=== PATIENT | female | born 1965 | race Hispanic/Latino ===

== ENCOUNTER 2021-05-27 14:00 | Inpatient (IN) | payer MEDICARE, OTHER ==
[~2021-05-27] VITALS: Ht 152.4 cm; Wt 76.2 kg
[2021-05-27 14:43] LABS: ABG BASE EXCESS -2.5 mmol/L (-2.0-3.0); ABG HCO3 21.6 mmol/L (21.0-28.0); ABG OXYGEN SATURATION 93.9 % (95.0-99.0); ABG PCO2 36 mmHg (32-45)
[2021-05-27 14:48] LABS: BASOPHILS % (AUTO) 0.1 % (0.0-5.0); HEMATOCRIT 41.6 % (36-48); LYMPHOCYTES % (AUTO) 12.2 % (21.0-51.0); MEAN CORPUSCULAR HGB CONC 31.5 g/dL (32.0-36.0); MEAN CORPUSCULAR VOLUME 82.7 fL (79-99); MONOCYTES % (AUTO) 5.2 % (3.0-13.0); NEUTROPHILS % (AUTO) 81.5 % (40.0-77.0); PLATELET COUNT (AUTO) 178 K/uL (130-400); RED BLOOD CELL COUNT(AUTO) 5.03 MIL/uL (4.00-5.50); RED CELL DISTRIBUTION WIDTH 14.4 % (11.0-15.5); WHITE BLOOD COUNT (AUTO) 8.3 K/uL (4.8-10.8)
[2021-05-27 15:02] LABS: CREATININE 0.9 mg/dL (0.5-1.5); POTASSIUM 3.9 mmol/L (3.5-5.1)
[2021-05-27 15:07] LABS: ALBUMIN 3.3 g/dL (3.5-5.0); BILIRUBIN,TOTAL 0.4 mg/dL (0.2-1.0); CRP QUANTITATIVE 95.1 mg/L (0.00-9.0); TOTAL PROTEIN, SERUM 8.3 g/dL (6.0-8.3)
[2021-05-27 15:33] LABS: B-TYPE NATRIURETIC PEPTIDE 45 pg/mL (0-100)
[2021-05-27] MEDS ORDERED: PHARMACY COMMUNICATION**REMDESIVIR ORDER MISC SCH (17:00)
[2021-05-27] MEDS ORDERED: LACTULOSE 20 GM/30 ML UDCUP PO PRN (17:00)
[2021-05-27] MEDS ORDERED: ONDANSETRON 4MG INJ IV PRN (17:00)
[2021-05-27] MEDS ORDERED: ERGOCALCIFEROL (VITAMIN D2) 50,000 UNIT CAPSULE PO ONE (17:00)
[2021-05-27] MEDS ORDERED: ACETAMINOPHEN 325 MG TAB PO PRN ×2 (17:00)
[2021-05-27 17:16] LABS: HEMOGLOBIN A1C 7.8 % (4.0-6.0)
[2021-05-27] MEDS ORDERED: COMPOUND IV REFRIGERATED 1 EACH IVSOLN MISC PRN (17:30)
[2021-05-27] MEDS: DOXYCYCLINE 100MG+NS 250ML IV SCH (17:42)
[2021-05-27] MEDS: CEFTRIAXONE 1G VIAL IVP SCH (17:42)
[2021-05-27] MEDS: DEXAMETHASONE SOD PHOSPHATE 4 MG/ML 1ML VIAL IVP SCH (17:42)
[2021-05-27] MEDS ORDERED: REMDESIVIR (EUA) 520 200 MG in 0.9% NACL 250ML 250 ML IV SCH (18:00)
[2021-05-27] MEDS: INSULIN HUMULIN R 100 UNIT/ML 3ML SQ SCH (20:56)
[2021-05-27] MEDS: ENOXAPARIN SODIUM 40 MG/0.4 ML SYRINGE SQ SCH (20:56)
[2021-05-27] MEDS: FAMOTIDINE 20MG TAB PO SCH (20:56)
[2021-05-27 21:02] LABS: APPEARANCE,URINE Clear (CLEAR); BILIRUBIN,URINE Negative (NEGATIVE); COLOR,URINE Yellow (YELLOW); GLUCOSE, URINE (UA) >=1000 mg/dL (NEGATIVE); KETONES,URINE Negative (NEGATIVE); LEUKOCYTE ESTERASE ,URINE Negative (NEGATIVE); NITRATE,URINE Negative (NEGATIVE); OCCULT BLOOD,URINE Negative (NEGATIVE); PROTEIN,URINE POS 1+ mg/dL (NEGATIVE); UROBILINOGEN,URINE 0.2 mg/dL (0.2-1.0)
[2021-05-27 21:11] LABS: BACTERIA,URINE None Seen /HPF (None Seen); RBC,URINE None Seen /HPF (0-1); SQUAMOUS EPITHELIAL CELL,UR Few /HPF (0-2); WBC,URINE None Seen /HPF (0-1); YEAST,URINE BUDDING None Seen /HPF (None Seen)
[2021-05-28] MEDS ORDERED: 0.9% NACL 250ML 250 ML ONE (05:03)
[2021-05-28] MEDS: DOXYCYCLINE 100MG+NS 250ML IV SCH ×2 (05:07→16:54)
[2021-05-28] MEDS: CEFTRIAXONE 1G VIAL IVP SCH ×2 (05:07→16:54)
[2021-05-28 05:30] VITALS: BP 142/88
[2021-05-28] MEDS: REMDESIVIR LABS MISC SCH (06:00)
[2021-05-28] MEDS: INSULIN HUMULIN R 100 UNIT/ML 3ML SQ SCH ×4 (06:48→22:18)
[2021-05-28] MEDS ORDERED: ISOS120T14 PO (07:02)
[2021-05-28] MEDS ORDERED: EZET10TA48 PO (07:02)
[2021-05-28] MEDS ORDERED: PRAV40TA3 PO (07:02)
[2021-05-28] MEDS ORDERED: MODA100T31 PO (07:02)
[2021-05-28] MEDS ORDERED: MONT10TA21 PO (07:02)
[2021-05-28] MEDS ORDERED: METF-444 PO (07:02)
[2021-05-28] MEDS ORDERED: ASPI-1197 PO (07:02)
[2021-05-28] MEDS ORDERED: CLOP75TA32 PO (07:02)
[2021-05-28] MEDS ORDERED: BUDE10.2 IH (07:02)
[2021-05-28] MEDS ORDERED: CELE-84 PO (07:02)
[2021-05-28] MEDS ORDERED: EMPA10TA PO (07:02)
[2021-05-28] MEDS ORDERED: GLIP5TAB11 PO (07:02)
[2021-05-28] MEDS ORDERED: CITA20TA17 PO (07:02)
[2021-05-28] MEDS ORDERED: METO-409 PO (07:02)
[2021-05-28] MEDS ORDERED: UMEC62.5 IH (07:02)
[2021-05-28] MEDS ORDERED: PREG75CA75 PO (07:02)
[2021-05-28] MEDS ORDERED: RANO10003 PO (07:02)
[2021-05-28] MEDS ORDERED: MELA3CAP2 PO (07:02)
[2021-05-28 07:21] LABS: BASOPHILS % (AUTO) 0.3 % (0.0-5.0); HEMATOCRIT 41.6 % (36-48); LYMPHOCYTES % (AUTO) 16.3 % (21.0-51.0); MEAN CORPUSCULAR HEMOGLOBIN 26.1 pg (27.0-33.0); MEAN CORPUSCULAR HGB CONC 30.8 g/dL (32.0-36.0); MEAN CORPUSCULAR VOLUME 84.9 fL (79-99); MONOCYTES % (AUTO) 7.1 % (3.0-13.0); NEUTROPHILS % (AUTO) 74.5 % (40.0-77.0); PLATELET COUNT (AUTO) 196 K/uL (130-400); RED CELL DISTRIBUTION WIDTH 14.3 % (11.0-15.5); WHITE BLOOD COUNT (AUTO) 6.8 K/uL (4.8-10.8)
[2021-05-28 08:37] VITALS: BP 130/84
[2021-05-28 09:18] LABS: BILIRUBIN,TOTAL 0.3 mg/dL (0.2-1.0); CREATININE 0.7 mg/dL (0.5-1.5); CRP QUANTITATIVE 61.7 mg/L (0.00-9.0)
[2021-05-28] MEDS: ZINC SULFATE 220 CAPSULE PO SCH (10:04)
[2021-05-28] MEDS: FAMOTIDINE 20MG TAB PO SCH ×2 (10:04→22:17)
[2021-05-28] MEDS: ASCORBIC ACID 500 MG TAB PO SCH (10:04)
[2021-05-28] MEDS: ENOXAPARIN SODIUM 40 MG/0.4 ML SYRINGE SQ SCH ×2 (10:06→22:18)
[2021-05-28 12:14] VITALS: BP 141/78
[2021-05-28 16:37] VITALS: BP 135/76
[2021-05-28] MEDS: DEXAMETHASONE SOD PHOSPHATE 4 MG/ML 1ML VIAL IVP SCH (16:55)
[2021-05-28] MEDS: REMDESIVIR (EUA) 520 100 MG in 0.9% NACL 250ML 250 ML IV SCH (16:56)
[2021-05-28] MEDS: QUETIAPINE FUMARATE 25 MG TAB PO SCH (18:11)
[2021-05-28 20:32] VITALS: BP 139/87
[2021-05-28 23:26] VITALS: BP 127/76
[2021-05-29 04:00] VITALS: BP 127/66
[2021-05-29 04:47] LABS: BASOPHILS % (AUTO) 0.1 % (0.0-5.0); HEMATOCRIT 41.4 % (36-48); MEAN CORPUSCULAR HEMOGLOBIN 25.9 pg (27.0-33.0); MEAN CORPUSCULAR HGB CONC 30.9 g/dL (32.0-36.0); MEAN CORPUSCULAR VOLUME 83.8 fL (79-99); MONOCYTES % (AUTO) 7.6 % (3.0-13.0); NEUTROPHILS % (AUTO) 73.5 % (40.0-77.0); PLATELET COUNT (AUTO) 202 K/uL (130-400); RED BLOOD CELL COUNT(AUTO) 4.94 MIL/uL (4.00-5.50); RED CELL DISTRIBUTION WIDTH 14.2 % (11.0-15.5); WHITE BLOOD COUNT (AUTO) 7.2 K/uL (4.8-10.8)
[2021-05-29 04:59] LABS: ALBUMIN 2.9 g/dL (3.5-5.0); BILIRUBIN,TOTAL 0.4 mg/dL (0.2-1.0); CREATININE 0.7 mg/dL (0.5-1.5); CRP QUANTITATIVE 39.4 mg/L (0.00-9.0); POTASSIUM 4.2 mmol/L (3.5-5.1); TOTAL PROTEIN, SERUM 7.5 g/dL (6.0-8.3)
[2021-05-29] MEDS: REMDESIVIR LABS MISC SCH (05:15)
[2021-05-29] MEDS ORDERED: 0.9% NACL 250ML 250 ML ONE (05:18)
[2021-05-29 05:34] LABS: BILIRUBIN,DIRECT 0.1 mg/dL (0.0-0.3)
[2021-05-29] MEDS: CEFTRIAXONE 1G VIAL IVP SCH ×2 (05:54→17:05)
[2021-05-29] MEDS: DOXYCYCLINE 100MG+NS 250ML IV SCH ×2 (05:54→17:05)
[2021-05-29] MEDS: INSULIN HUMULIN R 100 UNIT/ML 3ML SQ SCH ×4 (05:55→20:17)
[2021-05-29 08:00] VITALS: BP 144/87
[2021-05-29] MEDS: ASCORBIC ACID 500 MG TAB PO SCH (09:57)
[2021-05-29] MEDS: ZINC SULFATE 220 CAPSULE PO SCH (09:57)
[2021-05-29] MEDS: ENOXAPARIN SODIUM 40 MG/0.4 ML SYRINGE SQ SCH (09:57)
[2021-05-29] MEDS: FAMOTIDINE 20MG TAB PO SCH ×2 (09:57→20:14)
[2021-05-29 12:00] VITALS: BP 157/81
[2021-05-29 16:00] VITALS: BP 151/86
[2021-05-29] MEDS ORDERED: UMECLIDINIUM BROMIDE 62.5 MCG IH PRN (17:00)
[2021-05-29] MEDS: DEXAMETHASONE SOD PHOSPHATE 4 MG/ML 1ML VIAL IVP SCH (17:05)
[2021-05-29] MEDS: REMDESIVIR (EUA) 520 100 MG in 0.9% NACL 250ML 250 ML IV SCH (17:10)
[2021-05-29] MEDS: BARICITINIB (EUA) 2 MG TABLET PO SCH (17:30)
[2021-05-29] MEDS: **HM**(Melatonin 3 MG PO SCH (20:12)
[2021-05-29] MEDS: ATORVASTATIN 10 MG TABLET PO SCH (20:14)
[2021-05-29] MEDS: RANOLAZINE 500 MG TAB.SR.12H PO SCH (20:15)
[2021-05-29] MEDS: MONTELUKAST SODIUM 10 MG TAB PO SCH (20:15)
[2021-05-29] MEDS: METOPROLOL SUCCINATE 50 MG TAB.SR.24H PO SCH (20:15)
[2021-05-29 20:23] VITALS: BP 146/87
[2021-05-29] MEDS: QUETIAPINE FUMARATE 25 MG TAB PO SCH (20:49)
[2021-05-29 23:07] VITALS: BP 141/84
[2021-05-30 03:36] VITALS: BP 133/67
[2021-05-30] MEDS: CEFTRIAXONE 1G VIAL IVP SCH ×2 (04:46→17:25)
[2021-05-30] MEDS: DOXYCYCLINE 100MG+NS 250ML IV SCH ×2 (04:46→17:24)
[2021-05-30 05:05] LABS: ALBUMIN 2.8 g/dL (3.5-5.0); BILIRUBIN,TOTAL 0.5 mg/dL (0.2-1.0); CREATININE 0.7 mg/dL (0.5-1.5); CRP QUANTITATIVE 44.9 mg/L (0.00-9.0); POTASSIUM 3.8 mmol/L (3.5-5.1); TOTAL PROTEIN, SERUM 7.1 g/dL (6.0-8.3)
[2021-05-30] MEDS: INSULIN HUMULIN R 100 UNIT/ML 3ML SQ SCH ×4 (06:00→21:32)
[2021-05-30] MEDS: REMDESIVIR LABS MISC SCH (06:00)
[2021-05-30 08:00] VITALS: BP 137/80
[2021-05-30] MEDS: METOPROLOL SUCCINATE 50 MG TAB.SR.24H PO SCH ×2 (09:43→21:00)
[2021-05-30] MEDS: RANOLAZINE 500 MG TAB.SR.12H PO SCH ×2 (09:43→21:20)
[2021-05-30] MEDS: ISOSORBIDE MONO 60MG SR TAB PO SCH (09:43)
[2021-05-30] MEDS: FAMOTIDINE 20MG TAB PO SCH ×2 (09:43→21:21)
[2021-05-30] MEDS: CLOPIDOGREL 75MG TAB PO SCH (09:44)
[2021-05-30] MEDS: ASPIRIN 81MG CHEW TAB PO SCH (09:44)
[2021-05-30] MEDS: MONTELUKAST SODIUM 10 MG TAB PO SCH ×2 (09:44→21:21)
[2021-05-30] MEDS: ZINC SULFATE 220 CAPSULE PO SCH (09:44)
[2021-05-30] MEDS: EZETIMIBE 10 MG TAB PO SCH (09:44)
[2021-05-30] MEDS: ASCORBIC ACID 500 MG TAB PO SCH (09:44)
[2021-05-30] MEDS: CITALOPRAM 20 MG TABLET PO SCH (09:44)
[2021-05-30] MEDS: ENOXAPARIN SODIUM 40 MG/0.4 ML SYRINGE SQ SCH (09:45)
[2021-05-30] MEDS: FLUTICASONE/VILANTEROL 1 EACH BLST.W.DEV IH SCH (09:45)
[2021-05-30] MEDS: BARICITINIB (EUA) 2 MG TABLET PO SCH (09:45)
[2021-05-30 12:00] VITALS: BP 140/77
[2021-05-30 15:26] LABS: BASOPHILS % (AUTO) 0.3 % (0.0-5.0); LYMPHOCYTES % (AUTO) 15.6 % (21.0-51.0); MEAN CORPUSCULAR HEMOGLOBIN 25.6 pg (27.0-33.0); MEAN CORPUSCULAR HGB CONC 29.5 g/dL (32.0-36.0); MEAN CORPUSCULAR VOLUME 86.5 fL (79-99); MONOCYTES % (AUTO) 7.2 % (3.0-13.0); NEUTROPHILS % (AUTO) 74.8 % (40.0-77.0); PLATELET COUNT (AUTO) 219 K/uL (130-400); RED BLOOD CELL COUNT(AUTO) 4.97 MIL/uL (4.00-5.50); RED CELL DISTRIBUTION WIDTH 14.7 % (11.0-15.5)
[2021-05-30 16:00] VITALS: BP 105/58
[2021-05-30] MEDS: REMDESIVIR (EUA) 520 100 MG in 0.9% NACL 250ML 250 ML IV SCH (17:25)
[2021-05-30] MEDS: DEXAMETHASONE SOD PHOSPHATE 4 MG/ML 1ML VIAL IVP SCH (17:25)
[2021-05-30 20:00] VITALS: BP 118/80
[2021-05-30] MEDS: **HM**(Melatonin 3 MG PO SCH (20:23)
[2021-05-30] MEDS: ATORVASTATIN 10 MG TABLET PO SCH (21:21)
[2021-05-30] MEDS: QUETIAPINE FUMARATE 25 MG TAB PO SCH (23:21)
[2021-05-31] VITALS: BP 109/70
[2021-05-31 04:00] VITALS: BP 110/69
[2021-05-31] MEDS: DOXYCYCLINE 100MG+NS 250ML IV SCH ×2 (05:07→16:35)
[2021-05-31] MEDS: CEFTRIAXONE 1G VIAL IVP SCH ×2 (05:07→16:35)
[2021-05-31 05:53] LABS: BASOPHILS % (AUTO) 0.2 % (0.0-5.0); HEMATOCRIT 38.6 % (36-48); LYMPHOCYTES % (AUTO) 14.8 % (21.0-51.0); MEAN CORPUSCULAR HEMOGLOBIN 26.3 pg (27.0-33.0); MEAN CORPUSCULAR HGB CONC 31.9 g/dL (32.0-36.0); MEAN CORPUSCULAR VOLUME 82.7 fL (79-99); MONOCYTES % (AUTO) 5.3 % (3.0-13.0); NEUTROPHILS % (AUTO) 77.2 % (40.0-77.0); PLATELET COUNT (AUTO) 229 K/uL (130-400); RED BLOOD CELL COUNT(AUTO) 4.67 MIL/uL (4.00-5.50); RED CELL DISTRIBUTION WIDTH 14.2 % (11.0-15.5); WHITE BLOOD COUNT (AUTO) 6.3 K/uL (4.8-10.8)
[2021-05-31] MEDS: REMDESIVIR LABS MISC SCH (06:00)
[2021-05-31 06:18] LABS: ALBUMIN 2.7 g/dL (3.5-5.0); BILIRUBIN,TOTAL 0.5 mg/dL (0.2-1.0); CREATININE 0.7 mg/dL (0.5-1.5); POTASSIUM 3.7 mmol/L (3.5-5.1); TOTAL PROTEIN, SERUM 6.8 g/dL (6.0-8.3)
[2021-05-31] MEDS: INSULIN HUMULIN R 100 UNIT/ML 3ML SQ SCH ×4 (06:53→21:13)
[2021-05-31 08:00] VITALS: BP 146/76
[2021-05-31] MEDS: RANOLAZINE 500 MG TAB.SR.12H PO SCH ×2 (09:06→19:37)
[2021-05-31] MEDS: ISOSORBIDE MONO 60MG SR TAB PO SCH (09:06)
[2021-05-31] MEDS: ZINC SULFATE 220 CAPSULE PO SCH (09:06)
[2021-05-31] MEDS: EZETIMIBE 10 MG TAB PO SCH (09:06)
[2021-05-31] MEDS: ASCORBIC ACID 500 MG TAB PO SCH (09:06)
[2021-05-31] MEDS: ASPIRIN 81MG CHEW TAB PO SCH (09:06)
[2021-05-31] MEDS: MONTELUKAST SODIUM 10 MG TAB PO SCH ×2 (09:06→19:37)
[2021-05-31] MEDS: CITALOPRAM 20 MG TABLET PO SCH (09:06)
[2021-05-31] MEDS: BARICITINIB (EUA) 2 MG TABLET PO SCH (09:07)
[2021-05-31] MEDS: CLOPIDOGREL 75MG TAB PO SCH (09:07)
[2021-05-31] MEDS: METOPROLOL SUCCINATE 50 MG TAB.SR.24H PO SCH ×2 (09:07→19:37)
[2021-05-31] MEDS: ENOXAPARIN SODIUM 40 MG/0.4 ML SYRINGE SQ SCH (09:07)
[2021-05-31] MEDS: FLUTICASONE/VILANTEROL 1 EACH BLST.W.DEV IH SCH (09:08)
[2021-05-31] MEDS: PANTOPRAZOLE 40 MG TAB DR PO SCH (10:00)
[2021-05-31 11:50] VITALS: BP 125/85
[2021-05-31 16:00] VITALS: BP 123/75
[2021-05-31] MEDS: DEXAMETHASONE SOD PHOSPHATE 4 MG/ML 1ML VIAL IVP SCH (16:35)
[2021-05-31] MEDS: REMDESIVIR (EUA) 520 100 MG in 0.9% NACL 250ML 250 ML IV SCH (16:35)
[2021-05-31] MEDS: ATORVASTATIN 10 MG TABLET PO SCH (19:37)
[2021-05-31 20:00] VITALS: BP 136/82
[2021-05-31] MEDS: QUETIAPINE FUMARATE 25 MG TAB PO SCH (20:51)
[2021-05-31] MEDS: **HM**(Melatonin 3 MG PO SCH (21:00)
[2021-06-01] VITALS: BP 122/67
[2021-06-01 04:00] VITALS: BP 122/68
[2021-06-01] MEDS: CEFTRIAXONE 1G VIAL IVP SCH ×2 (04:18→16:25)
[2021-06-01] MEDS: DOXYCYCLINE 100MG+NS 250ML IV SCH ×2 (04:18→16:26)
[2021-06-01] MEDS: INSULIN HUMULIN R 100 UNIT/ML 3ML SQ SCH ×4 (06:14→22:04)
[2021-06-01 08:00] VITALS: BP 135/84
[2021-06-01] MEDS: METOPROLOL SUCCINATE 50 MG TAB.SR.24H PO SCH ×2 (09:23→21:37)
[2021-06-01] MEDS: ZINC SULFATE 220 CAPSULE PO SCH (09:23)
[2021-06-01] MEDS: PANTOPRAZOLE 40 MG TAB DR PO SCH (09:23)
[2021-06-01] MEDS: ASCORBIC ACID 500 MG TAB PO SCH (09:23)
[2021-06-01] MEDS: EZETIMIBE 10 MG TAB PO SCH (09:23)
[2021-06-01] MEDS: RANOLAZINE 500 MG TAB.SR.12H PO SCH ×2 (09:23→21:37)
[2021-06-01] MEDS: MONTELUKAST SODIUM 10 MG TAB PO SCH ×2 (09:23→21:37)
[2021-06-01] MEDS: CLOPIDOGREL 75MG TAB PO SCH (09:24)
[2021-06-01] MEDS: ISOSORBIDE MONO 60MG SR TAB PO SCH (09:24)
[2021-06-01] MEDS: ENOXAPARIN SODIUM 40 MG/0.4 ML SYRINGE SQ SCH (09:25)
[2021-06-01] MEDS: ASPIRIN 81MG CHEW TAB PO SCH (09:25)
[2021-06-01] MEDS: BARICITINIB (EUA) 2 MG TABLET PO SCH (09:25)
[2021-06-01] MEDS: CITALOPRAM 20 MG TABLET PO SCH (09:29)
[2021-06-01] MEDS: FLUTICASONE/VILANTEROL 1 EACH BLST.W.DEV IH SCH (09:29)
[2021-06-01 12:00] VITALS: BP 132/78
[2021-06-01] MEDS ORDERED: METO-391 PO (13:08)
[2021-06-01] MEDS ORDERED: DEXA6TAB PO (13:08)
[2021-06-01] MEDS ORDERED: PANT40TA PO (13:08)
[2021-06-01 16:00] VITALS: BP 116/74
[2021-06-01] MEDS: DEXAMETHASONE SOD PHOSPHATE 4 MG/ML 1ML VIAL IVP SCH (16:25)
[2021-06-01 20:00] VITALS: BP 123/67
[2021-06-01] MEDS: **HM**(Melatonin 3 MG PO SCH (21:00)
[2021-06-01] MEDS: QUETIAPINE FUMARATE 25 MG TAB PO SCH (21:37)
[2021-06-01] MEDS: ATORVASTATIN 10 MG TABLET PO SCH (21:37)
[2021-06-02] VITALS (7 sets, daily range): BP systolic 112–156; BP diastolic 65–96
[2021-06-02] MEDS: DOXYCYCLINE 100MG+NS 250ML IV SCH ×2 (03:53→16:49)
[2021-06-02] MEDS: CEFTRIAXONE 1G VIAL IVP SCH ×2 (03:53→16:48)
[2021-06-02] MEDS: INSULIN HUMULIN R 100 UNIT/ML 3ML SQ SCH ×4 (06:27→19:49)
[2021-06-02] MEDS: CITALOPRAM 20 MG TABLET PO SCH (10:16)
[2021-06-02] MEDS: ZINC SULFATE 220 CAPSULE PO SCH (10:16)
[2021-06-02] MEDS: EZETIMIBE 10 MG TAB PO SCH (10:16)
[2021-06-02] MEDS: ASPIRIN 81MG CHEW TAB PO SCH (10:16)
[2021-06-02] MEDS: MONTELUKAST SODIUM 10 MG TAB PO SCH ×2 (10:17→19:48)
[2021-06-02] MEDS: RANOLAZINE 500 MG TAB.SR.12H PO SCH ×2 (10:17→19:47)
[2021-06-02] MEDS: ASCORBIC ACID 500 MG TAB PO SCH (10:17)
[2021-06-02] MEDS: PANTOPRAZOLE 40 MG TAB DR PO SCH (10:17)
[2021-06-02] MEDS: METOPROLOL SUCCINATE 50 MG TAB.SR.24H PO SCH ×2 (10:17→19:47)
[2021-06-02] MEDS: CLOPIDOGREL 75MG TAB PO SCH (10:17)
[2021-06-02] MEDS: FLUTICASONE/VILANTEROL 1 EACH BLST.W.DEV IH SCH (10:18)
[2021-06-02] MEDS: ISOSORBIDE MONO 60MG SR TAB PO SCH (10:18)
[2021-06-02] MEDS: BARICITINIB (EUA) 2 MG TABLET PO SCH (10:18)
[2021-06-02] MEDS: ENOXAPARIN SODIUM 40 MG/0.4 ML SYRINGE SQ SCH (10:18)
[2021-06-02] MEDS: DEXAMETHASONE SOD PHOSPHATE 4 MG/ML 1ML VIAL IVP SCH (16:48)
[2021-06-02] MEDS: **HM**(Melatonin 3 MG PO SCH (19:48)
[2021-06-02] MEDS: ATORVASTATIN 10 MG TABLET PO SCH (19:48)
[2021-06-03 03:27] VITALS: BP 133/77
[2021-06-03] MEDS: CEFTRIAXONE 1G VIAL IVP SCH (03:54)
[2021-06-03] MEDS: DOXYCYCLINE 100MG+NS 250ML IV SCH (03:54)
[2021-06-03] MEDS: INSULIN HUMULIN R 100 UNIT/ML 3ML SQ SCH ×2 (06:28→12:46)
[2021-06-03 08:00] VITALS: BP 156/87
[2021-06-03] MEDS: METOPROLOL SUCCINATE 50 MG TAB.SR.24H PO SCH (08:43)
[2021-06-03] MEDS: CITALOPRAM 20 MG TABLET PO SCH (08:44)
[2021-06-03] MEDS: MONTELUKAST SODIUM 10 MG TAB PO SCH (08:44)
[2021-06-03] MEDS: RANOLAZINE 500 MG TAB.SR.12H PO SCH (08:44)
[2021-06-03] MEDS: PANTOPRAZOLE 40 MG TAB DR PO SCH (08:44)
[2021-06-03] MEDS: ASCORBIC ACID 500 MG TAB PO SCH (08:44)
[2021-06-03] MEDS: CLOPIDOGREL 75MG TAB PO SCH (08:44)
[2021-06-03] MEDS: ISOSORBIDE MONO 60MG SR TAB PO SCH (08:46)
[2021-06-03] MEDS: ASPIRIN 81MG CHEW TAB PO SCH (08:46)
[2021-06-03] MEDS: ZINC SULFATE 220 CAPSULE PO SCH (08:47)
[2021-06-03] MEDS: EZETIMIBE 10 MG TAB PO SCH (08:47)
[2021-06-03] MEDS: BARICITINIB (EUA) 2 MG TABLET PO SCH (08:47)
[2021-06-03] MEDS: FLUTICASONE/VILANTEROL 1 EACH BLST.W.DEV IH SCH (08:49)
[2021-06-03] MEDS: ENOXAPARIN SODIUM 40 MG/0.4 ML SYRINGE SQ SCH (08:49)
[2021-06-03 11:00] VITALS: BP 127/69
== END 2021-06-03 16:25 | disposition home or self-care (01) | DRG 177 ==
LOC: EDH 14:00 → EDHIP 16:40 → 4AH 05-28 05:38
PROVIDERS: ADMIT Internal Medicine; ATTEND Internal Medicine
PROC: XW033E5 Introduction of Remdesivir Anti-infective into Peripheral Vein, Percutaneous Approach, New Technology Group 5 (ICD-10-PCS; principal; 2021-05-27)
PROC: XW0DXM6 Introduction of Baricitinib into Mouth and Pharynx, External Approach, New Technology Group 6 (ICD-10-PCS; 2021-05-29)
PROC: 5A0935A Assistance with Respiratory Ventilation, Less than 24 Consecutive Hours, High Flow/Velocity Cannula (ICD-10-PCS; 2021-05-31)
DX: U07.1 COVID-19 (principal); J12.82 Pneumonia due to coronavirus disease 2019; J96.01 Acute respiratory failure with hypoxia; J12.81 Pneumonia due to SARS-associated coronavirus; J44.0 Chronic obstructive pulmonary disease with (acute) lower respiratory infection; D68.69 Other thrombophilia; I10 Essential (primary) hypertension; G47.33 Obstructive sleep apnea (adult) (pediatric); E11.9 Type 2 diabetes mellitus without complications; E78.5 Hyperlipidemia, unspecified; Z79.4 Long term (current) use of insulin; Z78.9 Other specified health status; Z87.01 Personal history of pneumonia (recurrent)
CPT/HCPCS: 36415; 36600; 71045; 80053; 81001; 82248; 82550; 82803; 82948; 83036; 83605; 83880; 84145; 84484; 85025; 85378; 86140; 87486; 87581; 87633; 87635; 87798; 87804; 93005; 94760; C9803; G0378; J0696; J1100; J1650; J1815; J3490; J7050